=== PATIENT | female | born 1945 | race Hispanic/Latino ===

== ENCOUNTER → 2018-02-06 | Outpatient (RCR) | payer MEDICARE ==
[~2018-02-06] MED LIST: ASPIR-LOW81 MG PO; BENICAR20 MG PO; CENTRUM COMPLE1 EACH PO; COLESTIPOL HCL1 GM PO; CURAMIN PO; FISH OIL 1,0001 EAC2 PO; GLIPIZIDE PO; METFORMIN HCL500 MG PO; NEXIUM40 MG PO; OCUVITE TABLET1 EAC1 PO; TYLENOL WITH C1 EACH PO; VITAMIN C500 M1 PO; [UNRECOGNIZED DRUG - OTHER] PO; [UNRECOGNIZED DRUG - OTHER] PO
== END ==
LOC: PT 01-28 14:03
PROVIDERS: ATTEND Specialist
DX: S33.5XXD Sprain of ligaments of lumbar spine, subsequent encounter (principal); M54.5 Low back pain; M54.16 Radiculopathy, lumbar region; S76.011A Strain of muscle, fascia and tendon of right hip, initial encounter; M25.551 Pain in right hip; M25.651 Stiffness of right hip, not elsewhere classified
CPT/HCPCS: 97110 ×3; 97162; G8990; G8991

== ENCOUNTER 2018-02-20 07:00 | Outpatient (RCR) | payer MEDICARE | END 2018-03-09 | LOC: PT 07:00 | PROVIDERS: ATTEND Specialist | DX: S33.5XXD Sprain of ligaments of lumbar spine, subsequent encounter (principal); M54.5 Low back pain; M54.16 Radiculopathy, lumbar region; M25.651 Stiffness of right hip, not elsewhere classified ==

== ENCOUNTER 2020-12-05 15:47 | Emergency (ER) | payer MEDICARE, OTHER ==
[~2020-12-05] VITALS: Ht 149.9 cm; Wt 77.1 kg
[2020-12-05] MEDS ORDERED: ACETAMINOPHEN 325 MG TAB PO ONE (16:30)
== END 2020-12-05 19:05 | disposition home or self-care (01) ==
LOC: ER 16:21
DX: S00.83XA Contusion of other part of head, initial encounter (principal); S16.1XXA Strain of muscle, fascia and tendon at neck level, initial encounter; W01.0XXA Fall on same level from slipping, tripping and stumbling without subsequent striking against object, initial encounter; Y93.01 Activity, walking, marching and hiking; Y92.000 Kitchen of unspecified non-institutional (private) residence as the place of occurrence of the external cause; I10 Essential (primary) hypertension; E11.9 Type 2 diabetes mellitus without complications; E78.5 Hyperlipidemia, unspecified
CPT/HCPCS: 70450; 70486; 72125; 99283